=== PATIENT | male | born 1955 | race Caucasian/White ===

== ENCOUNTER 2020-01-06 18:38 | Inpatient (IN) | payer OTHER ==
[~2020-01-06] VITALS: Ht 172.7 cm; Wt 93.0 kg
[2020-01-06] MEDS ORDERED: TAMS0.4C (18:56)
[2020-01-06] MEDS ORDERED: GLIMEPIRIDE2 MG (18:56)
[2020-01-06] MEDS ORDERED: LOTREL 10-20 M1 EACH (18:56)
[2020-01-06] MEDS ORDERED: METFORMIN HCL1000 M2 (18:56)
[2020-01-06] MEDS ORDERED: ATORVASTATIN CA10 MG (18:57)
[2020-01-06] MEDS ORDERED: PROSCAR5 MG (18:57)
--- NOTE | 2020-01-06 18:58 | NUR ---
SE RECIBE PTE ALERTA Y ORIENTADO X3,REFIERE TENER HEMATIRIA LO REFIERE EL PARA HACERLE UN PROCEDIMIENTO.
--- NOTE | 2020-01-06 20:00 | NUR ---
SE ORIENTA AL PACIENTE SOBRE EL TX. SE EXTRAEN MUESTRAS DE [place]ILL[place] BAJO MEDIDAS ASEPTICAS SE ROTULAN Y ENVIAN LA LABORATORIO. SE CANALIZA Y ADMINISTRAN MEDICAMENTOS MARK ORDEN MEDICA. SE ENTREGA UA ROTULADO Y SE ORIENTA A COLECTAR LA MUESTRA. SE NISH MUESTRA PARA TYPE&CROSSMATCH ROTULADOS Y LLEVADOS BANCO DE [place] A MR. MOORE.
== END 2020-01-07 12:29 | disposition home or self-care (01) | DRG 667 ==
LOC: ER 18:38 → MEDJ 19:06 → SURH 19:42
PROVIDERS: ADMIT Urology; ATTEND Urology
PROC: 0TBB8ZX Excision of Bladder, Via Natural or Artificial Opening Endoscopic, Diagnostic (ICD-10-PCS; 2020-01-06)
PROC: 0TCB8ZZ Extirpation of Matter from Bladder, Via Natural or Artificial Opening Endoscopic (ICD-10-PCS; 2020-01-06)
PROC: 0VB08ZZ Excision of Prostate, Via Natural or Artificial Opening Endoscopic (ICD-10-PCS; principal; 2020-01-06 19:00)
DX: N30.81 Other cystitis with hematuria (principal); N40.0 Benign prostatic hyperplasia without lower urinary tract symptoms; E11.9 Type 2 diabetes mellitus without complications; I10 Essential (primary) hypertension

== ENCOUNTER → 2020-02-08 | Outpatient (CLI) | payer OTHER ==
[~2020-02-08] MED LIST: ATORVASTATIN CA10 MG; GLIMEPIRIDE2 MG; LOTREL 10-20 M1 EACH; METFORMIN HCL1000 M2; PROSCAR5 MG; TAMS0.4C
== END | disposition home or self-care (01) ==
LOC: TOM 08:33
PROVIDERS: ATTEND Urology
DX: R31.0 Gross hematuria (principal); N40.0 Benign prostatic hyperplasia without lower urinary tract symptoms; N20.0 Calculus of kidney

== ENCOUNTER 2020-05-21 15:30 | Outpatient (CLI) | payer OTHER | END 2020-05-21 15:40 | disposition home or self-care (01) | LOC: LAB 15:30 | DX: Z20.828 Contact with and (suspected) exposure to other viral communicable diseases (principal) ==

== ENCOUNTER 2022-11-04 07:21 | Outpatient (CLI) | payer OTHER | END 2022-11-04 07:23 | disposition home or self-care (01) | LOC: NUCLEAR 07:21 | DX: I82.611 Acute embolism and thrombosis of superficial veins of right upper extremity (principal) ==

== ENCOUNTER 2022-11-24 13:25 | Outpatient (CLI) | payer OTHER | END 2022-11-24 13:39 | disposition home or self-care (01) | LOC: RAD 13:25 | PROVIDERS: ATTEND Internal Medicine Gastroenterology | DX: D50.0 Iron deficiency anemia secondary to blood loss (chronic) (principal); D50.9 Iron deficiency anemia, unspecified; T18.2XXA Foreign body in stomach, initial encounter ==

== ENCOUNTER → 2023-04-27 12:07 | Outpatient (CLI) | payer OTHER ==
[2023-04-27 13:04] LABS: HEMATOCRIT 30.9 % (39.0-48.0); HEMOGLOBIN 10.1 g/dL (13-16.00); MEAN CELL VOLUME 85.1 fL (80.0-100.00); MEAN CORPUSCULAR HEMOGLOBIN 27.7 pg (27.00-32.0); MEAN CORPUSCULAR HGB CONC 32.5 g/dl (32.0-36.0); PLATELET COUNT 270 K/uL (150-450); RED BLOOD COUNT 3.63 M/uL (4.00-6.00)
[2023-04-27 13:27] LABS: COL ADP 103 SECONDS (56-102); COL EPI 137 SECONDS (82-175)
[2023-04-27 13:32] LABS: FERRITIN 11.8 NG/ML (26-388)
== END | disposition home or self-care (01) ==
LOC: LAB 12:07
PROVIDERS: ATTEND Internal Medicine
DX: D69.3 Immune thrombocytopenic purpura (principal); D69.9 Hemorrhagic condition, unspecified; D50.8 Other iron deficiency anemias

== ENCOUNTER 2023-06-01 07:18 | Outpatient (CLI) | payer OTHER | END 2023-06-01 07:22 | disposition home or self-care (01) | LOC: NUCLEAR 07:18 | PROVIDERS: ATTEND Specialist | DX: I20.9 Angina pectoris, unspecified (principal); E11.9 Type 2 diabetes mellitus without complications; E78.00 Pure hypercholesterolemia, unspecified | CPT/HCPCS: 78452; 93017; A9500 ==